=== PATIENT | female | born 1995 | race Caucasian/White ===

== ENCOUNTER 2017-09-03 15:44 | Emergency (ER) | END 2017-09-03 19:30 | disposition home or self-care (01) ==

== ENCOUNTER 2019-01-23 22:18 | Emergency (ER) | payer BC ==
[~2019-01-23] VITALS: Ht 160 cm; Wt 75.3 kg
[~2019-01-23 22:18] MED LIST: CIPR500T4 PO; FAMO-96 PO; IBUP-1542 PO; ONDA4TAB14 PO
[2019-01-23 22:21] VITALS: Ht 160 cm; Wt 75.3 kg
[2019-01-23] MEDS ORDERED: ONDANSETRON (ODT) 4 MG TAB ODT STA (23:03)
[2019-01-23] MEDS ORDERED: LIDOCAINE/MYLANTA 40 ML BTL PO ONE (23:30)
--- NOTE | 2019-01-24 00:36 | ERD ---
ER Documentation Chief Complaint Chief Complaint ABD PAIN WITH N/V AND ST XTODAY HPI Patient is a 23-year-old female, no past medical history, presents to the ER for concerns of abdominal pain along with nausea and vomiting which started earlier today. Patient states the pain is localized to the epigastric region. Patient states she is vomited 3-4 times, nonbloody, nonbilious. Patient denies any radiation of the pain. Patient does admit to eating spicy and fried foods. Patient denies any recent alcohol use for the last 2 weeks. She states he ate chicken wings earlier today. Patient denies any fevers or chills. Patient denies any chest pain, shortness of breath, left upper extremity pain or diaphoresis. Patient denies any recent alcohol use. Patient denies any diarrhea. Patient denies any rectal bleeding, dysuria, frequency, urgency or hematuria. Patient also reports throat pain x3 days. She reports having a mild dry cough. No recent travel. No sick contacts. ROS All systems reviewed and are negative except as per history of present illness. Medications Home Meds Active Scripts Ondansetron (Ondansetron Odt) 4 Mg Tab.rapdis, 4 MG PO Q6H PRN for NAUSEA AND/OR VOMITING, #10 TAB Prov:BLAISE EL PA-C 01/24/19 Famotidine* (Pepcid*) 20 Mg Tablet, 20 MG PO DAILY for 30 Days, TAB Prov:BLAISE EL PA-C 01/24/19 Ibuprofen* (Motrin*) 600 Mg Tab, 600 MG PO Q6, #30 TAB Prov:NICKI CAGE PA-C 09/03/17 Ciprofloxacin Hcl* (Ciprofloxacin Hcl*) 500 Mg Tablet, 500 MG PO BID for 7 Days, TAB Prov:NICKI CAGE PA-C 09/03/17 Allergies Allergies: Coded Allergies: No Known Allergy (Unverified , 04/11/12) PMhx/Soc Medical and Surgical Hx: pt denies Medical Hx History of Surgery: Yes (hernia) Anesthesia Reaction: No Hx Neurological Disorder: No Hx Respiratory Disorders: No Hx Cardiac Disorders: No Hx Psychiatric Problems: No Hx Miscellaneous Medical Probl: Yes (migraine) Hx Alcohol Use: No Hx Substance Use: Yes (marijuana) Hx Tobacco Use: No Smoking Status: Never smoker FmHx Family History: No diabetes Physical Exam Vitals Vital Signs Date Temp Pulse Resp B/P (MAP) Pulse Ox O2 O2 Flow FiO2 Time Delivery Rate 01/23/19 97.2 78 19 138/85 98 22:21 (102) Physical Exam GENERAL: Well-developed, well-nourished female. Appears in no acute distress. HEAD: Normocephalic, atraumatic. EYES: Pupils are equally reactive bilaterally. EOMs grossly intact. No conjunctival erythema. ENT: Moist mucous membranes. Oropharynx is slightly erythematous however no exudates noted on bilateral tonsils. No unilateral tonsillar swelling. No uvula deviation. No kissing tonsils. NECK: Supple. No meningismus. Normal range of motion of the neck. LUNG: Clear to auscultation bilaterally. No rhonchi, wheezing, rales or coarse breath sounds. HEART: Regular rate and rhythm. No murmurs, rubs or gallops. ABDOMEN: Soft, and nondistended. Tender to palpation in the epigastric region. Positive bowel sounds in all four quadrants. No rebound tenderness, no guarding. (-) McBurney's point tenderness. No CVA tenderness. EXTREMITIES: Equal pulses bilaterally. No peripheral clubbing, cyanosis or edema. No unilateral leg swelling. NEUROLOGIC: Alert and oriented. Moving all four extremities without any difficulty. Normal speech. Steady gait. SKIN: Normal color. Warm and dry. No rashes or lesions. Results 24 hrs Laboratory Tests Test 01/23/19 23:46 01/23/19 23:47 Bedside Urine pH (LAB) 6.0 Bedside Urine Protein (LAB) 1+ Bedside Urine Glucose (UA) Negative Bedside Urine Ketones (LAB) 2+ Bedside Urine Blood 2+ Bedside Urine Nitrite (LAB) Negative Bedside Urine Leukocyte Esterase (L Negative POC Beta HCG, Qualitative NEGATIVE Current Medications Medications Dose Sig/Lisa Start Time Status Last (Trade) Ordered Route PRN Stop Time Admin Dose Reason Admin 40 ml ONCE ONCE 01/23/19 DC 01/23/19 Miscellaneous PO 23:30 23:24 Medication 01/23/19 23:31 (Gi Cocktail (2)) Ondansetron 4 mg ONCE STAT 01/23/19 DC 01/23/19 HCl (Zofran ODT 23:03 23:24 Odt) 01/23/19 23:04 Procedures/MDM MEDICAL DECISION MAKING: This is a 23-year-old female presents the ER for concerns of epigastric pain, v omiting, throat pain. Vital signs were reviewed. Patient is afebrile. Abdominal exam revealed tenderness to palpation in the epigastric region. Patient did admit to eating fried and spicy foods. Patient was given GI cocktail and Zofran. No additional episodes of vomiting noted throughout the ED course. Patient reported improvement in symptoms. Symptoms are likely related to gastritis versus GERD. Dietary changes were discussed and advised. Patient was advised she may need to follow-up with a GI specialist for an endoscopy on an outpatient basis if her symptoms persist. Unable to rule out PUD at this time. Differential diagnoses include was not limited to acute coronary syndrome, AAA, mesenteric ischemia, lower lobe pneumonia, DKA, bowel perforation, cholecystitis, choledocholithiasis, ascending cholangitis, hepatic abscess, pancreatitis, splenic rupture, diverticulitis, UTI, pyelonephritis, nephrolithiasis, appendicitis, constipation, , ectopic , PID, ovarian torsion or tubo-ovarian abscess. Patient was nontoxic, [id number] prior to discharge. PRESCRIPTIONS: Zofran, Pepcid DISCHARGE: At this time, patient is stable for discharge and outpatient management. I have instructed the patient to follow-up with his/her primary care physician in 1-2 days. I have instructed the patient to promptly return to the ER at any time for any new or worsening symptoms including increased pain, nausea, vomiting, diarrhea, fever, weakness or LOC. The patient and/or family expressed understanding of and agreement with this plan. All questions were answered. Home care instructions were provided. Disclaimer: Inadvertent spelling and grammatical errors are likely due to EHR/dictation software use and do not reflect on the overall quality of patient care. Also, please note that the electronic time recorded on this note does not necessarily reflect the actual time of the patient encounter. Departure Diagnosis: Primary Impression: Epigastric pain Additional Impression: Pharyngitis Pharyngitis/tonsillitis etiology: unspecified etiology Qualified Codes: J02.9 - Acute pharyngitis, unspecified Condition: Fair Patient Instructions: Gerd (Adult) Referrals: COMM[facility] YOU HAVE RECEIVED A MEDICAL SCREENING EXAM AND THE RESULTS INDICATE THAT YOU DO NOT HAVE A CONDITION THAT REQUIRES URGENT TREATMENT IN THE EMERGENCY DEPARTMENT. FURTHER EVALUATION AND TREATMENT OF YOUR CONDITION CAN WAIT UNTIL YOU ARE SEEN IN YOUR DOCTORS OFFICE WITHIN THE NEXT 1-2 DAYS. IT IS YOUR RESPONSIBILITY TO MAKE AN APPOINTMENT FOR FOLOW-UP CARE. IF YOU HAVE A PRIMARY DOCTOR --you should call your primary doctor and schedule an appointment IF YOU DO NOT HAVE A PRIMARY DOCTOR YOU CAN CALL OUR PHYSICIAN REFERRAL HOTLINE AT IF YOU CAN NOT AFFORD TO SEE A PHYSICIAN YOU CAN CHOSE FROM THE FOLLOWING [facility] [address] [facility] [address] [facility] [address] [facility] [address] [facility] [address] [facility]. [facility] [address] [facility] [place]. [facility] YOU HAVE RECEIVED A MEDICAL SCREENING EXAM AND THE RESULTS INDICATE THAT YOU DO NOT HAVE A CONDITION THAT REQUIRES URGENT TREATMENT IN THE EMERGENCY DEPARTMENT. FURTHER EVALUATION AND TREATMENT OF YOUR CONDITION CAN WAIT UNTIL YOU ARE SEEN IN YOUR DOCTORS OFFICE WITHIN THE NEXT 1-2 DAYS. IT IS YOUR RESPONSIBILITY TO MAKE AN APPOINTMENT FOR FOLOW-UP CARE. IF YOU HAVE A PRIMARY DOCTOR --you should call your primary doctor and schedule and appointment IF YOU DO NOT HAVE A PRIMARY DOCTOR YOU CAN CALL OUR PHYSICIAN REFERRAL HOTLINE AT . IF YOU CAN NOT AFFORD TO SEE A PHYSICIAN YOU CAN CHOSE FROM THE FOLLOWING [facility] INSTITUTIONS: [facility] [address] [place] [address] [facility] [address] [place] [address] [facility] + [facility] [address] [place] [address] Additional Instructions: Dietary changes advised as discussed. Call your primary care doctor TOMORROW for an appointment during the next 1-2 days.See the doctor sooner or return here if your condition worsens before your appointment time. BLAISE EL PA-C Jan 24, 2019 00:36
[2019-01-24 00:56] VITALS: BP 123/71; PULSE 69; RESP 18
== END 2019-01-24 00:56 | disposition home or self-care (01) ==
LOC: FTE 22:18
DX: R10.13 Epigastric pain (principal); J02.9 Acute pharyngitis, unspecified; R11.2 Nausea with vomiting, unspecified
CPT/HCPCS: 81003; 81025; Z7610; 99283